=== PATIENT | male | born 1975 | race African-American/Black ===

== ENCOUNTER 2016-04-08 13:23 | Emergency (ER) | payer OTHER ==
[~2016-04-08] VITALS: Ht 172.7 cm; Wt 74.8 kg
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
[2016-04-08] MEDS ORDERED: Cyclobenzaprine 10mg Tab ORAL ONE (14:15)
[2016-04-08] MEDS ORDERED: Ketorolac 30mg Inj IM ONE (14:15)
[2016-04-08] MEDS ORDERED: CYCLOBENZAPRINE10 MG ORAL (15:20)
[2016-04-08] MEDS ORDERED: IBUPROFEN600 MG ORAL (15:20)
--- NOTE | 2016-04-08 15:31 | Diagnostic Imaging Report ---
Indications: PAIN Technique: Two views of the left forearm Comparison: None Findings: No acute fractures or dislocations. No radiopaque foreign body. Normal mineralization. Impression: Negative
--- NOTE | 2016-04-08 15:36 | Diagnostic Imaging Report ---
Indication: PAIN Technique: Multiple views of the right ribs Comparison: None Findings: There is chronic appearing deformity of the left fourth and fifth ribs. There is an lucent lesion with a sclerotic rim measuring 18 x 9 mm in the posterior lateral right fifth rib. No acute fractures. No pneumothorax Impression: 18 x 9 mm right rib lesion. Appearance is nonspecific, but sclerotic rim suggest benignity. Given stated clinical history bone pain, recommend bone scan 2 evaluate for the presence of metabolic activity No acute bony trauma Evidence of chronic left rib abnormality, as described, suspect posttraumatic. Correlate with clinical history
[2016-04-08 15:40] VITALS: BP 115/67
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
== END 2016-04-08 15:40 | disposition home or self-care (01) ==
LOC: EMR 14:20
DX: T14.8 Other injury of unspecified body region (principal); V43.52XA Car driver injured in collision with other type car in traffic accident, initial encounter; Y93.9 Activity, unspecified; Y92.410 Unspecified street and highway as the place of occurrence of the external cause; R07.81 Pleurodynia; M79.602 Pain in left arm
CPT/HCPCS: 71101; 73090; 96372; 99284; J1885